=== PATIENT | female | born 1935 | race Caucasian/White ===

== ENCOUNTER → 2019-02-05 | Outpatient (CLI) | payer MEDICARE ==
[2019-02-05 13:44] LABS: BASO # 0.1 10^3/uL (0.0-0.2); BASO % 0.6 % (0.0-1.0); EOS # 0.1 10^3/uL (0.0-0.50); HEMATOCRIT 38.1 % (36.0-47.0); HEMOGLOBIN 11.7 g/dl (12.0-15.5); LYMPH # 2.4 10^3/uL (1.5-4.5); LYMPH % 27.4 % (24.0-44.0); MEAN CORPUSCULAR HGB CONC 30.7 g/dl (32.0-36.5); MEAN CORPUSCULAR VOLUME 91.1 fl (80.0-96.0); MONO # 0.5 10^3/uL (0.0-0.8); MONO % 5.8 % (0.0-5.0); NEUTROPHILS # 5.6 10^3/uL (1.8-7.7); PLATELET COUNT, AUTOMATED 323 10^3/uL (150-450); RED BLOOD COUNT 4.18 10^6/uL (4.00-5.40); WHITE BLOOD COUNT 8.6 10^3/uL (4.0-10.0)
[2019-02-05 14:03] LABS: ALBUMIN 3.7 GM/DL (3.2-5.2); ALT/SGPT 7 U/L (12-78); BILIRUBIN,TOTAL 0.5 MG/DL (0.2-1.0); BLOOD UREA NITROGEN 15 MG/DL (7-18); C REACTIVE PROTEIN QUANTITATIV 1.12 MG/DL (0.00-0.30); CALCIUM LEVEL 8.8 MG/DL (8.8-10.2); CARBON DIOXIDE LEVEL 29 MEQ/L (21-32); CHLORIDE LEVEL 106 MEQ/L (98-107); CREATININE FOR GFR 0.92 MG/DL (0.55-1.30); GLOMERULAR FILTRATION RATE > 60.0 (>32); GLUCOSE, FASTING 85 MG/DL (70-100); POTASSIUM SERUM 3.9 MEQ/L (3.5-5.1); RHEUMATOID FACTOR QUANT < 10.0 IU/ML (<15.0); SODIUM LEVEL 140 MEQ/L (136-145); TOTAL PROTEIN 6.8 GM/DL (6.4-8.2); URIC ACID 5.1 MG/DL (2.6-6.0)
[2019-02-05 14:21] LABS: ERYTHROCYTE SEDIMENTATION RATE 35 mm/hr (0-30)
--- NOTE | 2019-02-05 15:00 | REP ---
Bilateral knees, single AP view, the patient standing: There is advanced osteoarthritis of the medial and lateral compartments of the right knee. There is associated osteophytic growth. The findings are compatible with advanced osteoarthritis. There is mild joint space narrowing of the left knee lateral compartment. There is minimal joint space narrowing of the left knee medial compartment. Mineralization is normal. There are no calcifications. Electronically Signed by John Jenkins MD 02/05/2019 02:52 P
--- NOTE | 2019-02-05 15:08 | REP ---
Right hand four views: There are no comparison studies. Clinical history states psoriatic arthritis. There is complete fusion of the carpal ossicles. There is fusion of the CMC articulations at the index and middle fingers. There is advanced joint space narrowing of the CMC articulations of the thumb, fourth digit and fifth digit. The thumb MCP and IP articulations are fused. There is diffuse demineralization. There is deforming arthropathy at the MCP articulations of the fourth and fifth digits and PIP articulations of the index and middle fingers. The index finger and DIP is fused. The middle finger DIP demonstrates an advanced joint space narrowing. The fourth and fifth digit PIC articulations and DIP articulations demonstrate advanced joint space narrowing. The radial head has been resected. Left hand four views: There is complete fusion of the carpal ossicles. The radial head has been resected. The index finger middle finger CMC articulations are fused. The left CMC articulation is fused. There is metallic surgical wire at this joint. There is deforming arthropathy of the index and middle finger MCP articulations. The index and middle finger PIP articulations are fused and there are metallic surgical sutures at these articulations. The index finger middle finger and fifth digit DIP articulations are fused. 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 There is advanced joint space narrowing of the fourth and fifth digit MCP and PIP articulations. Electronically Signed by John Jenkins MD 02/05/2019 03:00 P
--- NOTE | 2019-02-05 15:10 | REP ---
Lumbar spine three views: There are no comparisons. There is scoliosis convex right. There is multilevel degenerative disc disease. There is no spondylolisthesis. Mineralization is normal. Sacroiliac articulations are unremarkable. Pedicles are unremarkable. Impression: Scoliosis. Multilevel degenerative disc disease. Electronically Signed by John Jenkins MD 02/05/2019 03:02 P
--- NOTE | 2019-02-05 16:17 | REP ---
Right knee four views: There is joint space narrowing and osteophytic formation in the medial, lateral and patellofemoral compartments compatible with advanced tricompartment osteoarthritis. There is a joint effusion. Mineralization is normal. There is no fracture or dislocation. There are no calcifications. Impression: Advanced tricompartment osteoarthritis. Electronically Signed by John Jenkins MD 02/05/2019 04:08 P
== END ==
LOC: M SMT 09:42
PROVIDERS: ATTEND Internal Medicine Rheumatology
DX: M17.0 Bilateral primary osteoarthritis of knee (principal); M25.461 Effusion, right knee; L40.50 Arthropathic psoriasis, unspecified; M54.9 Dorsalgia, unspecified; M25.569 Pain in unspecified knee
CPT/HCPCS: 36415; 72100; 73130; 73564; 80053; 84550; 85025; 85652; 86140; 86200; 86431; G0463